=== PATIENT | female | born 1950 | race African-American/Black ===

== ENCOUNTER 2021-12-22 11:25 | Inpatient (IN) | payer OTHER ==
[~2021-12-22] VITALS: Ht 162.6 cm; Wt 75.1 kg
[2021-12-22 11:25] VITALS: BP 122/74; TEMP 99.1
[2021-12-22 12:09] LABS: PLATELET COUNT 225 K/uL (152-353)
[2021-12-22 12:17] LABS: POTASSIUM 3.9 mmol/L (3.6-5.2)
[2021-12-22 15:27] VITALS: BP 133/83; TEMP 98; Ht 162.6 cm; Wt 75.1 kg
[2021-12-22] MEDS ORDERED: GABA300C2 PO (19:45)
[2021-12-22] MEDS ORDERED: FLONASE AL50 MCG/ACT NAS (19:46)
[2021-12-22] MEDS ORDERED: METHO2.5 PO (19:48)
[2021-12-22] MEDS ORDERED: VERELAN180 MG PO (19:48)
[2021-12-22] MEDS ORDERED: EUTHYROX100 MCG PO (19:49)
[2021-12-22] MEDS ORDERED: METFORMIN HYDR500 M2 PO (19:50)
[2021-12-22] MEDS ORDERED: AMITRIPTYLINE H50 MG PO (19:51)
[2021-12-22] MEDS ORDERED: CYCLOBENZAPRINE10 MG PO (19:52)
[2021-12-22] MEDS ORDERED: KLOR-CON M1010 MEQ PO (19:53)
[2021-12-22 19:54] VITALS: BP 103/59; TEMP 97.5
[2021-12-22] MEDS ORDERED: NITR0.4S2 SL (19:55)
[2021-12-22] MEDS ORDERED: IPRASOL5 INH (19:56)
[2021-12-22] MEDS ORDERED: ALBUTEROL0.63 MG/3 INH (19:57)
[2021-12-22] MEDS ORDERED: WIXELA INHUB 251 AER INH (19:58)
[2021-12-22] MEDS ORDERED: FIASP FLEX100 UNIT/M SC (20:00)
[2021-12-22] MEDS ORDERED: FAMO20TA4 PO (20:01)
[2021-12-22] MEDS ORDERED: PRED5TAB3 PO (20:02)
[2021-12-22] MEDS ORDERED: MONT10TA PO (20:02)
[2021-12-22] MEDS ORDERED: LIPITOR20 MG PO (20:03)
[2021-12-22] MEDS ORDERED: LISI20TA31 PO (20:03)
[2021-12-22] MEDS ORDERED: [UNRECOGNIZED DRUG - OTHER] PO (20:05)
[2021-12-22] MEDS ORDERED: CLARITIN10 M1 PO (20:06)
[2021-12-22] MEDS ORDERED: IRON325 MG PO (20:07)
[2021-12-22] MEDS ORDERED: KP FOLIC ACID1 MG PO (20:08)
[2021-12-22] MEDS ORDERED: FURO20TA67 PO (20:09)
[2021-12-22] MEDS ORDERED: [UNRECOGNIZED DRUG - CODE] PO (20:09)
[2021-12-22] MEDS ORDERED: [UNRECOGNIZED DRUG - OTHER] PO (20:10)
[2021-12-22 23:52] VITALS: BP 113/57; TEMP 97.7
[2021-12-23 03:47] VITALS: BP 124/61; TEMP 97.8
[2021-12-23 08:00] VITALS: BP 130/65; TEMP 97.6
[2021-12-23] MEDS ORDERED: ALBUTEROL0.63 MG/3 INH (08:32)
[2021-12-23] MEDS ORDERED: PRED20TA27 PO (08:33)
[2021-12-23] MEDS ORDERED: AZIT250T3 PO (08:34)
[2021-12-23] MEDS ORDERED: CODESYP18 PO (08:48)
[2021-12-23 12:00] VITALS: BP 123/64; TEMP 97.8
== END 2021-12-23 16:56 | disposition home or self-care (01) | DRG 202 ==
LOC: ED 11:41 → MED/SURG 13:53
PROVIDERS: Family Medicine; ADMIT Internal Medicine; ATTEND Internal Medicine
DX: J45.998 Other asthma (principal); I50.33 Acute on chronic diastolic (congestive) heart failure; J98.11 Atelectasis; R05.3 Chronic cough; M06.8A Other specified rheumatoid arthritis, other specified site; I11.0 Hypertensive heart disease with heart failure; E11.42 Type 2 diabetes mellitus with diabetic polyneuropathy; K21.9 Gastro-esophageal reflux disease without esophagitis; E78.49 Other hyperlipidemia; D64.89 Other specified anemias; R09.02 Hypoxemia
CPT/HCPCS: 36415; 36600; 80053; 80307; 81002; 82805; 83880; 85027; 85379; 87040; 87502; 87635; 90686; 93005; 94664; 94760; 96365; 96366; 96372; 96375; 96376; 99284; J0456; J1650; J2920; J2930; Q9963; U0003

== ENCOUNTER 2022-06-22 14:28 | Inpatient (IN) | payer OTHER ==
[~2022-06-22] VITALS: Ht 154.9 cm; Wt 80.5 kg
[~2022-06-22 14:28] MED LIST: ALBUTEROL0.63 MG/3 INH; AMITRIPTYLINE H50 MG PO; AZIT250T3 PO; CLARITIN10 M1 PO; CODESYP18 PO; CYCLOBENZAPRINE10 MG PO; EUTHYROX100 MCG PO; FAMO20TA4 PO; FIASP FLEX100 UNIT/M SC; FLONASE AL50 MCG/ACT NAS; FURO20TA67 PO; GABA300C2 PO; IPRASOL5 INH; IRON325 MG PO; KLOR-CON M1010 MEQ PO; KP FOLIC ACID1 MG PO; LIPITOR20 MG PO; LISI20TA31 PO; METFORMIN HYDR500 M2 PO; METHO2.5 PO; MONT10TA PO; NITR0.4S2 SL; PRED20TA27 PO; PRED5TAB3 PO; VERELAN180 MG PO; WIXELA INHUB 251 AER INH; [UNRECOGNIZED DRUG - CODE] PO; [UNRECOGNIZED DRUG - OTHER] PO; [UNRECOGNIZED DRUG - OTHER] PO
[2022-06-22 14:51] VITALS: BP 97/52; TEMP 98.7
[2022-06-22 15:07] LABS: PLATELET COUNT 235 K/uL (152-353)
[2022-06-22 15:24] LABS: PARTIAL THROMBOPLASTIN TIME 25.4 SECONDS (23.9-36.7)
[2022-06-22 15:50] LABS: POTASSIUM 4.5 mmol/L (3.6-5.2)
[2022-06-22 18:23] VITALS: BP 98/51; TEMP 97.8; Ht 154.9 cm; Wt 80.5 kg
[2022-06-22 19:48] VITALS: BP 101/64; TEMP 97.3
[2022-06-22 23:32] VITALS: BP 116/63; TEMP 97.4
[2022-06-23 04:00] VITALS: BP 121/67; TEMP 97.4
[2022-06-23 07:15] LABS: PLATELET COUNT 195 K/uL (152-353)
[2022-06-23 08:00] VITALS: BP 135/69; TEMP 97.5
[2022-06-23 08:15] LABS: POTASSIUM 4.7 mmol/L (3.6-5.2)
[2022-06-23] MEDS ORDERED: VERAPAMIL HYDR180 MG PO (09:22)
[2022-06-23] MEDS ORDERED: ALBUTEROL0.63 MG/3 INH (09:26)
[2022-06-23] MEDS ORDERED: LISI20TA11 PO (09:27)
[2022-06-23] MEDS ORDERED: METFORMIN HYD1000 MG PO (10:30)
[2022-06-23] MEDS ORDERED: PRED5TAB3 PO (10:31)
[2022-06-23] MEDS ORDERED: OYSTER SHELL PO (10:33)
[2022-06-23] MEDS ORDERED: FAMO20TA4 PO (10:33)
[2022-06-23] MEDS ORDERED: MIRALAX17 GM PO (10:34)
[2022-06-23] MEDS ORDERED: MONT10TA PO (10:34)
[2022-06-23] MEDS ORDERED: LIPITOR20 MG PO (10:35)
[2022-06-23] MEDS ORDERED: LEVO0.1T6 PO (10:36)
[2022-06-23] MEDS ORDERED: LISI20TA31 PO (10:37)
[2022-06-23] MEDS ORDERED: AMITRIPTYLINE H50 MG PO (10:37)
[2022-06-23] MEDS ORDERED: FERROUS SULF325 M1 PO (10:38)
[2022-06-23] MEDS ORDERED: CYCL10TA35 PO (10:38)
[2022-06-23] MEDS ORDERED: CLARITIN10 M1 PO (10:39)
[2022-06-23] MEDS ORDERED: FOLI1TAB26 PO (10:40)
[2022-06-23] MEDS ORDERED: FURO20TA67 PO (10:40)
[2022-06-23] MEDS ORDERED: KLOR-CON M1010 MEQ PO (10:41)
[2022-06-23 12:00] VITALS: BP 156/81; TEMP 97.3
[2022-06-23 16:00] VITALS: BP 159/86; TEMP 97.5
[2022-06-23 20:00] VITALS: BP 130/85; TEMP 98.7
[2022-06-24] VITALS: BP 106/62; TEMP 98.3
[2022-06-24 04:00] VITALS: BP 144/77; TEMP 97.7
[2022-06-24 05:04] LABS: PLATELET COUNT 198 K/uL (152-353)
[2022-06-24 05:25] LABS: POTASSIUM 4.2 mmol/L (3.6-5.2)
[2022-06-24 08:00] VITALS: BP 152/78; TEMP 97.4
[2022-06-24 12:00] VITALS: BP 137/64; TEMP 98
[2022-06-24 16:00] VITALS: BP 154/75; TEMP 97.4
[2022-06-24 20:00] VITALS: BP 139/81; TEMP 97.4
[2022-06-25] VITALS (7 sets, daily range): BP systolic 125–179; BP diastolic 65–92; TEMP 96.2–98.3
[2022-06-26 03:37] VITALS: BP 139/74; TEMP 97.8
[2022-06-26 05:27] LABS: PLATELET COUNT 203 K/uL (152-353)
[2022-06-26 05:42] LABS: POTASSIUM 3.7 mmol/L (3.6-5.2)
[2022-06-26 08:00] VITALS: BP 170/88; TEMP 98.1
[2022-06-26 12:00] VITALS: BP 132/63; TEMP 97.3
[2022-06-26 16:00] VITALS: BP 146/53; TEMP 97.9
[2022-06-26 20:00] VITALS: BP 176/88; TEMP 97.4
[2022-06-27] VITALS: BP 156/74; TEMP 98.2
[2022-06-27 04:00] VITALS: BP 172/84; TEMP 98.1
[2022-06-27 08:00] VITALS: BP 187/96; TEMP 98
[2022-06-27] MEDS ORDERED: TRELEGY ELLIPTA1 AE1 INH (10:07)
[2022-06-27 12:00] VITALS: BP 150/72; TEMP 97.4
[2022-06-27 16:00] VITALS: BP 130/59; TEMP 97.5
[2022-06-27 20:00] VITALS: BP 172/87; TEMP 97.4
[2022-06-28] VITALS: BP 201/93; TEMP 97.4
[2022-06-28 03:57] VITALS: BP 196/156; TEMP 97.4
[2022-06-28 08:00] VITALS: BP 185/84; TEMP 97.5
[2022-06-28] MEDS ORDERED: Flonase Nasal Inhale NAS (10:21)
[2022-06-28] MEDS ORDERED: TRELEGY ELLIPTA1 AE1 INH (10:27)
[2022-06-28] MEDS ORDERED: CODELIQ8 PO (10:27)
[2022-06-28] MEDS ORDERED: DOCU100C10 PO (10:49)
[2022-06-28 12:00] VITALS: BP 171/76; TEMP 97.5
[2022-06-28] MEDS ORDERED: [UNRECOGNIZED DRUG - OTHER] PO (14:06)
== END 2022-06-28 15:45 | disposition home or self-care (01) | DRG 190 ==
LOC: ED 14:28 → MED/SURG 16:20
PROVIDERS: Internal Medicine; ADMIT Emergency Medicine; ATTEND Internal Medicine
DX: J44.1 Chronic obstructive pulmonary disease with (acute) exacerbation (principal); J18.9 Pneumonia, unspecified organism; R06.02 Shortness of breath; R05.9 Cough, unspecified; I50.9 Heart failure, unspecified; E89.0 Postprocedural hypothyroidism; K21.9 Gastro-esophageal reflux disease without esophagitis; I11.0 Hypertensive heart disease with heart failure; E11.65 Type 2 diabetes mellitus with hyperglycemia; Z79.4 Long term (current) use of insulin
CPT/HCPCS: 36415; 36600; 80048; 80053; 82805; 82948; 83605; 83880; 84443; 84484; 85027; 85610; 85730; 87040; 87070; 87205; 87635; 93005; 94664; 94667; 94760; 96361; 96365; 96367; 96372; 96374; 96375; 96376; 99284; J1956; J0360; J0456; J1650; J2270; J2405; J2920; J2930; U0003

== ENCOUNTER 2022-07-14 16:15 | Emergency (ER) | payer OTHER ==
[~2022-07-14] VITALS: Ht 154.9 cm; Wt 73.9 kg
[~2022-07-14 16:15] MED LIST changes: +CODELIQ8 PO; +CYCL10TA35 PO; +DOCU100C10 PO; +FERROUS SULF325 M1 PO; +FOLI1TAB26 PO; +Flonase Nasal Inhale NAS; +LEVO0.1T6 PO; +LISI20TA11 PO; +METFORMIN HYD1000 MG PO; +MIRALAX17 GM PO; +OYSTER SHELL PO; +TRELEGY ELLIPTA1 AE1 INH; +VERAPAMIL HYDR180 MG PO; +[UNRECOGNIZED DRUG - OTHER] PO
[2022-07-14 17:17] LABS: PLATELET COUNT 164 K/uL (152-353)
[2022-07-14 17:28] LABS: POTASSIUM 4.6 mmol/L (3.6-5.2)
[2022-07-14 21:00] VITALS: BP 102/53; TEMP 98
== END 2022-07-14 21:00 | disposition home or self-care (01) ==
LOC: ED 16:15
PROVIDERS: Internal Medicine
DX: S30.0XXA Contusion of lower back and pelvis, initial encounter (principal); S00.03XA Contusion of scalp, initial encounter; W19.XXXA Unspecified fall, initial encounter; M16.0 Bilateral primary osteoarthritis of hip
CPT/HCPCS: 80053; 81002; 85027; 93005; 96360; 99284

== ENCOUNTER 2022-08-04 06:18 | Emergency (ER) | payer OTHER ==
[~2022-08-04] VITALS: Ht 154.9 cm; Wt 90.7 kg
[2022-08-04 08:10] LABS: PLATELET COUNT 266 K/uL (152-353)
[2022-08-04 08:13] LABS: POTASSIUM 4.1 mmol/L (3.6-5.2)
[2022-08-04 12:40] VITALS: BP 167/79; TEMP 98
== END 2022-08-04 12:40 | disposition home or self-care (01) ==
LOC: ED 06:18
PROVIDERS: Family Medicine
DX: R10.30 Lower abdominal pain, unspecified (principal); A08.4 Viral intestinal infection, unspecified
CPT/HCPCS: 80048; 81002; 82150; 82272; 83690; 85027; 87015; 87045; 87635; 87899; 96360; 99284; U0003

== ENCOUNTER 2022-08-13 19:07 | Inpatient (IN) | payer OTHER ==
[~2022-08-13] VITALS: Ht 162.6 cm; Wt 75.4 kg
[2022-08-13 19:10] VITALS: BP 103/55; TEMP 97.6
[2022-08-13 20:23] LABS: PLATELET COUNT 265 K/uL (152-353)
[2022-08-13 23:10] VITALS: BP 104/62; TEMP 97.7
[2022-08-14 02:49] VITALS: BP 99/58; TEMP 97.7; Ht 162.6 cm; Wt 75.4 kg
[2022-08-14 04:00] VITALS: BP 107/66; TEMP 98.2
[2022-08-14 04:53] LABS: PLATELET COUNT 231 K/uL (152-353)
[2022-08-14 05:10] LABS: POTASSIUM 4.2 mmol/L (3.6-5.2)
[2022-08-14 08:00] VITALS: BP 112/69; TEMP 97.6
[2022-08-14] MEDS ORDERED: ADULT ASPIRIN R81 MG PO (12:24)
[2022-08-14] MEDS ORDERED: LIPITOR40 MG PO (12:25)
[2022-08-14] MEDS ORDERED: AMITRIPTYLINE H50 MG PO (12:26)
[2022-08-14] MEDS ORDERED: ONDA4TAB3 PO (12:28)
[2022-08-14] MEDS ORDERED: EUTHYROX100 MCG PO (12:29)
[2022-08-14 12:30] VITALS: BP 114/76; TEMP 96.9
[2022-08-14] MEDS ORDERED: ZESTRIL40 MG PO (12:30)
[2022-08-14] MEDS ORDERED: IMODIUM A-D2 M2 PO (12:33)
[2022-08-14] MEDS ORDERED: FOLI1TAB26 PO (12:34)
[2022-08-14] MEDS ORDERED: METF100038 PO (12:39)
[2022-08-14] MEDS ORDERED: VERA180T12 PO (12:41)
[2022-08-14 16:00] VITALS: BP 122/77; TEMP 97.5
[2022-08-14 20:00] VITALS: BP 130/81; TEMP 97.1
[2022-08-15] VITALS: BP 120/75; TEMP 97.6
[2022-08-15 04:00] VITALS: BP 134/84; TEMP 97.7
[2022-08-15 05:49] LABS: PLATELET COUNT 200 K/uL (152-353)
[2022-08-15 05:55] LABS: POTASSIUM 4.1 mmol/L (3.6-5.2)
[2022-08-15 08:00] VITALS: BP 135/79; TEMP 97.3
[2022-08-15 11:54] VITALS: BP 138/82; TEMP 97.7
[2022-08-15 15:59] VITALS: BP 137/85; TEMP 97.8
[2022-08-15 20:00] VITALS: BP 150/88; TEMP 97.4
[2022-08-16] VITALS: BP 160/83; TEMP 97.3
[2022-08-16 04:00] VITALS: BP 145/75; TEMP 97.5
[2022-08-16 04:46] LABS: PLATELET COUNT 156 K/uL (152-353)
[2022-08-16 04:58] LABS: POTASSIUM 4.5 mmol/L (3.6-5.2)
[2022-08-16 08:00] VITALS: BP 136/78; TEMP 97.5
[2022-08-16 12:00] VITALS: BP 113/60; TEMP 97.3
[2022-08-16 16:00] VITALS: BP 148/84; TEMP 99
[2022-08-16 20:00] VITALS: TEMP 98.9
[2022-08-17 00:05] VITALS: BP 166/77; TEMP 98.7
[2022-08-17 04:00] VITALS: BP 169/87; TEMP 98.1
[2022-08-17 05:20] LABS: PLATELET COUNT 205 K/uL (152-353); POTASSIUM 4.3 mmol/L (3.6-5.2)
[2022-08-17 07:58] VITALS: BP 137/72; TEMP 97.3
[2022-08-17 12:00] VITALS: BP 172/93; TEMP 97.2
[2022-08-17 16:00] VITALS: BP 146/77; TEMP 97.4
[2022-08-17 20:00] VITALS: BP 151/86; TEMP 97.8
[2022-08-18] VITALS (7 sets, daily range): BP systolic 140–175; BP diastolic 70–86; TEMP 95.8–98.7
[2022-08-18 05:21] LABS: PLATELET COUNT 194 K/uL (152-353)
[2022-08-18 05:34] LABS: POTASSIUM 3.7 mmol/L (3.6-5.2)
[2022-08-19] VITALS: BP 142/75; TEMP 98
[2022-08-19 04:00] VITALS: BP 176/90; TEMP 98.3
[2022-08-19 08:00] VITALS: BP 154/68; TEMP 98.1
[2022-08-19 12:21] VITALS: BP 149/63; TEMP 98.5
[2022-08-19 16:00] VITALS: BP 127/61; TEMP 98.7
[2022-08-19 20:00] VITALS: BP 159/81; TEMP 97.4
[2022-08-20] VITALS (7 sets, daily range): BP systolic 124–178; BP diastolic 64–89; TEMP 97.6–101.9
[2022-08-20 07:23] LABS: PLATELET COUNT 186 K/uL (152-353)
[2022-08-20 07:35] LABS: POTASSIUM 3.5 mmol/L (3.6-5.2)
[2022-08-21 03:49] VITALS: BP 154/86; TEMP 97.6
[2022-08-21 05:09] LABS: PLATELET COUNT 164 K/uL (152-353)
[2022-08-21 05:24] LABS: POTASSIUM 3.7 mmol/L (3.6-5.2)
[2022-08-21 08:00] VITALS: BP 156/84; TEMP 98.1
[2022-08-21] MEDS ORDERED: FURO20TA67 PO (10:25)
[2022-08-21] MEDS ORDERED: KLOR-CON M1010 MEQ PO (10:25)
[2022-08-21 12:00] VITALS: BP 147/92; TEMP 98.4
[2022-08-21 15:56] VITALS: BP 125/78; TEMP 98.8
[2022-08-21 20:00] VITALS: BP 168/90; TEMP 98.5
[2022-08-21 23:33] VITALS: BP 123/73; TEMP 99.8
[2022-08-22 03:44] VITALS: BP 121/62; TEMP 97.8
[2022-08-22 05:35] LABS: PLATELET COUNT 148 K/uL (152-353)
[2022-08-22 05:57] LABS: POTASSIUM 3.7 mmol/L (3.6-5.2)
[2022-08-22 08:00] VITALS: BP 137/71; TEMP 98.6
[2022-08-22 12:00] VITALS: BP 116/72; TEMP 97.8
[2022-08-22 16:00] VITALS: BP 145/82; TEMP 98.9
[2022-08-22 19:49] VITALS: BP 116/92; TEMP 98.9
[2022-08-22 23:41] VITALS: BP 128/79; TEMP 99
[2022-08-23 03:55] VITALS: BP 116/61; TEMP 97.6
[2022-08-23 08:00] VITALS: BP 126/73; TEMP 97.5
[2022-08-23] MEDS ORDERED: POTA10CA3 PO (10:01)
[2022-08-23] MEDS ORDERED: FURO20TA67 PO (10:01)
[2022-08-23] MEDS ORDERED: Vancocin HCl 125MG C PO (10:02)
== END 2022-08-23 12:50 | disposition home or self-care (01) | DRG 371 ==
LOC: ED 19:07 → MED/SURG 21:37
PROVIDERS: Family Medicine; Internal Medicine; ADMIT Nurse Practitioner Family; ATTEND Internal Medicine Endocrinology, Diabetes & Metabolism
DX: A04.72 Enterocolitis due to Clostridium difficile, not specified as recurrent (principal); I63.89 Other cerebral infarction; I69.351 Hemiplegia and hemiparesis following cerebral infarction affecting right dominant side; E87.1 Hypo-osmolality and hyponatremia; J98.4 Other disorders of lung; I50.9 Heart failure, unspecified; R19.7 Diarrhea, unspecified; K21.9 Gastro-esophageal reflux disease without esophagitis; E78.49 Other hyperlipidemia; M06.8A Other specified rheumatoid arthritis, other specified site; R47.89 Other speech disturbances; R10.31 Right lower quadrant pain; I11.0 Hypertensive heart disease with heart failure; R11.0 Nausea; E11.40 Type 2 diabetes mellitus with diabetic neuropathy, unspecified; E03.8 Other specified hypothyroidism; R13.19 Other dysphagia; R29.810 Facial weakness; R53.83 Other fatigue; I69.391 Dysphagia following cerebral infarction
CPT/HCPCS: 36415; 80048; 80053; 81002; 82948; 83690; 83735; 84100; 85007; 85027; 87015; 87045; 87899; 93005; 94760; 96361; 96365; 96367; 96372; 96375; 99283; J0744; J1650; J1815; J1940; J2270; J2405; J2920; J2930; J3475; Q9963

== ENCOUNTER 2022-10-23 13:49 | Observation (INO) | payer OTHER ==
[~2022-10-23] VITALS: Ht 162.6 cm; Wt 67.7 kg
[~2022-10-23 13:49] MED LIST changes: +ADULT ASPIRIN R81 MG PO; +IMODIUM A-D2 M2 PO; +LIPITOR40 MG PO; +METF100038 PO; +ONDA4TAB3 PO; +POTA10CA3 PO; +VERA180T12 PO; +Vancocin HCl 125MG C PO; +ZESTRIL40 MG PO
[2022-10-23 13:55] VITALS: BP 133/73; TEMP 98.7
[2022-10-23 15:11] VITALS: BP 92/61
[2022-10-23 15:23] LABS: PLATELET COUNT 251 K/uL (152-353)
[2022-10-23 16:00] VITALS: BP 105/62
[2022-10-23] MEDS ORDERED: LISI10TA11 PO (18:49)
[2022-10-23] MEDS ORDERED: MONT10TA PO (18:51)
[2022-10-23] MEDS ORDERED: AMITRIPTYLINE H50 MG PO (18:52)
[2022-10-23] MEDS ORDERED: CYCL10TA35 PO (18:53)
[2022-10-23] MEDS ORDERED: POLYETHYLE17 GM/SCO1 PO (18:55)
[2022-10-23] MEDS ORDERED: ACIDOPHILU6 PO (18:56)
[2022-10-23] MEDS ORDERED: NITR0.4S2 SL (18:56)
[2022-10-23 18:57] VITALS: BP 143/73; TEMP 98.5; Ht 162.6 cm; Wt 67.7 kg
[2022-10-23] MEDS ORDERED: FIASP100 UNIT/M SC (18:57)
[2022-10-23] MEDS ORDERED: IPRASOL5 INH (18:58)
[2022-10-23] MEDS ORDERED: ALBUTEROL0.63 MG/3 INH (18:59)
[2022-10-23] MEDS ORDERED: TRELEGY ELLIPTA1 AER INH (19:00)
[2022-10-23 20:28] VITALS: BP 132/69; TEMP 97.6
[2022-10-24] VITALS: BP 153/87; TEMP 97.8
[2022-10-24 04:00] VITALS: BP 147/84; TEMP 97.8
[2022-10-24 08:20] VITALS: BP 130/82; TEMP 97.8
[2022-10-24 12:00] VITALS: BP 136/79; TEMP 98.2
[2022-10-24] MEDS ORDERED: ULTRAM 50MG TAB PO (14:52)
[2022-10-24] MEDS ORDERED: TRAM50TA PO (14:56)
== END 2022-10-24 17:01 | disposition home or self-care (01) ==
LOC: ED 13:49 → MED/SURG 16:55
PROVIDERS: Family Medicine; ADMIT Internal Medicine; ATTEND Internal Medicine
DX: R51.9 Headache, unspecified (principal); G93.89 Other specified disorders of brain; Z86.73 Personal history of transient ischemic attack (TIA), and cerebral infarction without residual deficits; R53.1 Weakness; I95.89 Other hypotension; E11.9 Type 2 diabetes mellitus without complications; E03.8 Other specified hypothyroidism; J98.4 Other disorders of lung; F32.A Depression, unspecified; G62.89 Other specified polyneuropathies; Z79.899 Other long term (current) drug therapy
CPT/HCPCS: 80053; 80307; 81002; 82550; 82948; 85027; 87040; 93005; 96360; 96361; 99221; 99284; G0378; J1650

== ENCOUNTER 2022-11-02 11:48 | Inpatient (IN) | payer OTHER ==
[2022-11-02] VITALS (9 sets, daily range): BP systolic 87–138; BP diastolic 48–72; TEMP 97.5–98.3; Ht 160 cm; Wt 69.4 kg
[~2022-11-02] VITALS: Ht 160 cm; Wt 69.4 kg
[~2022-11-02 11:48] MED LIST changes: +ACIDOPHILU6 PO; -LEVO0.1T6 PO; +POLYETHYLE17 GM/SCO1 PO; +TRAM50TA PO; +TRAMADOL HYDROC50 MG PO; +ULTRAM 50MG TAB PO
[2022-11-02 12:48] LABS: PLATELET COUNT 286 K/uL (152-353)
[2022-11-02 12:56] LABS: POTASSIUM 4.4 mmol/L (3.6-5.2)
[2022-11-02] MEDS ORDERED: FURO20TA67 PO (20:00)
[2022-11-02] MEDS ORDERED: K-TABS10 MEQ PO (20:00)
[2022-11-02] MEDS ORDERED: FLONASE AL50 MCG/ACT NAS (20:01)
[2022-11-02] MEDS ORDERED: VERA180T12 PO (20:05)
[2022-11-03] VITALS: BP 122/70; TEMP 97.6
[2022-11-03 03:46] VITALS: BP 125/64; TEMP 97.7
[2022-11-03 05:08] LABS: PLATELET COUNT 220 K/uL (152-353)
[2022-11-03 05:17] LABS: POTASSIUM 4.1 mmol/L (3.6-5.2)
[2022-11-03 08:00] VITALS: BP 144/76; TEMP 97.6
[2022-11-03 12:00] VITALS: BP 138/75; TEMP 97.8
[2022-11-03 16:00] VITALS: BP 174/81; TEMP 98.2
[2022-11-03 20:00] VITALS: BP 175/89; TEMP 98.2
[2022-11-04] VITALS: BP 162/66; TEMP 98.3
[2022-11-04 04:00] VITALS: BP 150/58; TEMP 98.2
[2022-11-04 07:40] VITALS: BP 142/52; TEMP 98
[2022-11-04 12:00] VITALS: BP 147/64; TEMP 97.5
== END 2022-11-04 17:30 | disposition home or self-care (01) | DRG 152 ==
LOC: ED 11:48 → MED/SURG 13:26
PROVIDERS: Family Medicine; ADMIT Internal Medicine Endocrinology, Diabetes & Metabolism; ATTEND Internal Medicine Endocrinology, Diabetes & Metabolism
DX: J06.9 Acute upper respiratory infection, unspecified (principal); J18.9 Pneumonia, unspecified organism; J96.01 Acute respiratory failure with hypoxia; Z86.73 Personal history of transient ischemic attack (TIA), and cerebral infarction without residual deficits; E11.9 Type 2 diabetes mellitus without complications; I10 Essential (primary) hypertension; E78.49 Other hyperlipidemia; E03.8 Other specified hypothyroidism; N28.89 Other specified disorders of kidney and ureter; Z79.4 Long term (current) use of insulin; I95.89 Other hypotension
CPT/HCPCS: 36415; 80048; 80053; 82948; 83605; 84484; 85027; 87635; 93005; 94760; 96361; 96365; 96366; 99284; J0456; J1956; U0003